=== PATIENT | female | born 1955 | race Caucasian/White ===

== ENCOUNTER 2017-01-23 14:35 | Emergency (ER) | payer SELFPAY ==
[2017-01-23] MEDS ORDERED: Dexamethasone 4 mg/ml Vial ONE (14:59)
[2017-01-23] MEDS ORDERED: traMADol HCl 50 MG TAB ONE (15:00)
[2017-01-23] MEDS ORDERED: Sulfameth/Trimethoprim DS 800-160mg TAB ONE (15:00)
== END 2017-01-23 15:20 | disposition home or self-care (01) ==
LOC: BURERS 14:35
DX: J01.90 Acute sinusitis, unspecified (principal); I10 Essential (primary) hypertension; F17.210 Nicotine dependence, cigarettes, uncomplicated; M32.9 Systemic lupus erythematosus, unspecified
CPT/HCPCS: 99283; J1100

== ENCOUNTER 2017-01-26 10:56 | Emergency (ER) | payer SELFPAY | END 2017-01-26 11:36 | disposition home or self-care (01) | LOC: BURERS 10:56 | DX: K21.9 Gastro-esophageal reflux disease without esophagitis (principal); F41.9 Anxiety disorder, unspecified; I10 Essential (primary) hypertension; F17.210 Nicotine dependence, cigarettes, uncomplicated; Z79.899 Other long term (current) drug therapy | CPT/HCPCS: 99283 ==